=== PATIENT | female | born 1945 | race Caucasian/White ===

== ENCOUNTER 2019-12-30 20:24 | Emergency (ER) | payer MEDICARE, OTHER, SELFPAY ==
[2019-12-30 20:25] VITALS: BP 140/88; PULSE 74; RESP 15; TEMP 37.1; O2SAT 97; BMI 22.6
--- NOTE | 2019-12-30 21:45 | US_ITS ---
STUDY: VENOUS DOPPLER ULTRASOUND - RIGHT LOWER EXTREMITY REASON FOR EXAM: Female, 74 years old. RT POSTERIOR CALF PAIN THAT RADIATES UP TO LATERAL THIGH TECHNIQUE: Ultrasound evaluation of the deep vein system to include mejia-scale imaging and compression was performed. Mejia-scale imaging and Doppler sonographic evaluation, including duplex spectral analysis and qualitative color flow sonography, was performed. COMPARISON: None. FINDINGS: Common Femoral Vein: Normal compression, spontaneity and augmentation. Normal color Doppler. Common Femoral Vein/Greater Saphenous Junction: Normal compression. No internal echoes. Deep Femoral Vein: Not imaged Femoral Proximal: Normal compression. No internal echoes. Femoral Middle: Normal compression, spontaneity and augmentation. Normal color Doppler. Femoral Distal: Normal compression. No internal echoes. Popliteal Vein: Normal compression, spontaneity and augmentation. Normal color Doppler. Posterior Tibial Vein: Normal compression. No internal echoes. Peroneal Vein: Normal compression. No internal echoes. US/Venous Duplex Imag/Limited/Uni IMPRESSION: Normal venous Doppler ultrasound of the lower extremity. There is no evidence of deep venous stenosis. Electronically Signed: Carlos Villarreal MD at 22:58 EDT , Service support ,
--- NOTE | 2019-12-30 21:50 | ED.DCSUM_ITS ---
History of Present Illness Chief Complaint: Lower Extremity Injury Informant: Patient Onset: Days Context: Gradual Onset Timing: Continuous Narrative: Is a 74-year-old female with no past medical history presenting with worsening right calf pain. She states it started as a small area on her right mid calf but is now radiating up to her knee and now up to her thigh. She was seen at [facility] a week ago and had an ultrasound performed to rule out DVT. She states she is very concerned because the pain is spread. She is had recent travel to [place] as well as [place] a couple months ago. She denies any injury or new activities. She denies any chest pain, shortness of breath or difficulty breathing. She is not taking anything for pain. She denies any other complaints at this time. Past Medical History - Allergies and Home Meds Allergies/Adverse Reactions: Allergies No Known Allergies Allergy (Verified 12/30/19 20:25) Primary Care Physician: Galina Benitez MD [Primary Care Provider] - Past Medical History: None Surgical History: noncontributory Smoking Status: Never smoker Review of Systems General: Denies: Chills, Fever, Sweats Eyes: Denies: Visual changes - bilaterally, Diplopia ENT: Denies: Rhinorrhea, Sore throat Cardiovascular: Denies: Chest pain, Palpitations Respiratory: Denies: Dyspnea, Cough, Dyspnea on exertion Gastrointestinal: Denies: Abdominal pain, Nausea, Vomiting, Diarrhea, Melena, Hematochezia Genitourinary: Denies: Dysuria, Hematuria, Frequency Musculoskeletal: Reports: Myalgias - Right lower leg, Extremity Pain - Right lower leg. Denies: Back pain, Swelling Skin: Denies: Rash, Wounds Neurological: Denies: Headache, Weakness, Numbness Physical Exam Vital Signs/Narrative: Vital Signs Temp Pulse Resp BP Pulse Ox 12/30/19 20:25 98.8 F 74 15 140/88 H 97 Inital Vital Signs reviewed: Yes General: Well nourished, Well developed, No Acute Distress Head: Normocephalic, Atraumatic Eyes: Perrl, EOMI ENT: Moist mucous membranes, No rhinorrhea Neck: Supple, Nontender Cardiovascular: Regular rate, Regular rhythm, No murmurs, - - 2 Plus bilateral DP pulses Respiratory: No distress, CTA bilaterally, Chest nontender Abdomen: Soft, Nontender, Nondistended, Normal bowel sounds Back: Nontender, Normal Inspection Extremities: No edema, Tenderness - Mild diffuse tenderness palpation of the right calf, knee and proximal leg, - - No associated deformity, joint effusion, erythema or warmth. Normal range of motion. Normal straight leg test, normal Sifuentes test, no palpable cords Skin: Normal color, No rash Neurological: Alert, Oriented x3, Cranial nerves II-XII grossly intact, Normal Strength, Normal Sensation Psychological: Normal affect, Normal Mood Diagnostic/Tx/Re-eval Clinical Impression(s) from Imaging Studies Venous Duplex 12/30/19 21:45 IMPRESSION: Normal venous Doppler ultrasound of the lower extremity. There is no evidence of deep venous stenosis. Electronically Signed: Carlos Villarreal MD at 22:58 EDT , Service support , Laboratory Data 12/30/19 12/30/19 12/30/19 22:05 22:05 22:05 WBC 6.0 RBC 5.04 Hgb 14.1 Hct 43.8 MCV 86.9 MCH 28.0 MCHC 32.2 RDW Std Deviation 42.1 RDW Coeff of Zach 13.3 Plt Count 270 MPV 10.6 Immature Gran % (Auto) 0.300 Neut % (Auto) 47.1 Lymph % (Auto) 38.4 Becker % (Auto) 11.9 H Eos % (Auto) 1.8 Baso % (Auto) 0.5 Absolute Neuts (auto) 2.8 Absolute Lymphs (auto) 2.29 Nucleated RBC % 0 Sodium 143 Potassium 4.0 Chloride 112 H Carbon Dioxide 29.0 Anion Gap 2 L BUN 23 H Creatinine 0.99 Estim Creat Clear Calc 47.38 Est GFR (MDRD) Af Amer 70 Est GFR (MDRD) Non-Af 58 L BUN/Creatinine Ratio 23.2 H Glucose 96 Calcium 8.8 Total Creatine Kinase 83 - Medical Decision Making Patient is evaluated for 1 week of worsening pain in her right lower leg. It started in her calf and is now moved up her leg. She is not having appreciable swelling. Patient had a negative DVT scan 1 week ago however her symptoms have increased significantly since that scan. I did repeat the scan which was again negative. I did check electrolytes, CBC and a CPK. These were all normal. No signs of DVT, electrolyte abnormality or rhabdomyolysis to explain her symptoms. She is neurovascular intact. She does not have any obvious deformity I do not think x-ray imaging is indicated at this time. She does not have any associated back pain and she did not have associated rash. This presentation is atypical for shingles and I would expect her to have a rash after 1 week of symptoms. Patient is counseled that the exact cause of her pain is not clear but she will be started on NSAID therapy empirically. She is instructed to follow-up with her primary care doctor for further evaluation and treatment. Patient is counseled on signs and symptoms requiring return to the emergency room. Patient verbalizes agreement and understand this plan. Patient discharged home in stable and improved condition. ED Disposition - Plan for ED Patient: Disposition: Home or Assisted Living Diagnosis: Right leg pain Instructions: ED Muscle Pain Leg Cramps, ED ACHING MUSCLES Prescriptions: Ibuprofen [Motrin] 600 mg PO Q6H PRN PRN #20 tab PRN Reason: Pain/Inflammation Transmission Status: Received by [id number] Referrals: Galina Benitez MD [Primary Care Provider] - Additional Instructions: You do not have a blood clot in your leg. You do not have signs of electrolyte abnormality or muscle breakdown. I do not know why you are having pain in your leg. Please follow-up with your primary care doctor for further evaluation.
[2019-12-30] MEDS: Ketorolac 15 MG/ML Vial IV (22:06)
[2019-12-30 22:15] LABS: Absolute Lymphocyte Count 2.29 X10^3/uL (0.83-4.51); Absolute Neutrophil Count 2.8 X10^3/uL (2.0-7.7); Basophil# 0.03 X10^3/uL; Basophil% 0.5 % (0-1); Eosinophil# 0.11 X10^3/uL; Eosinophils% 1.8 % (0-5); Hematocrit 43.8 % (37-47); Hemoglobin 14.1 g/dL (12.0-15.0); Lymphocyte # 2.29 X10^3/ul (4.0); Lymphocyte % 38.4 % (19-41); Mean Corp Hgb Conc 32.2 g/dL (32-36); Mean Corpuscular Volume 86.9 fL (81-99); Mean Platelet Vol. 10.6 fl (6.2-12.0); Monocyte# 0.71 X10^3/uL; Monocyte% 11.9 % (0-10); NRBC Flagged by Analyzer 0 % (0-5); Neutrophil % 47.1 % (47-70); Platelet Count 270 K/mm3 (150-450); RBC Distribution Width CV 13.3 % (11.6-14.6); RBC Distribution Width SD 42.1 fl (35.1-43.9); Red Blood Count 5.04 M/mm3 (4.2-5.4)
[2019-12-30 22:29] LABS: Anion Gap 2 (5-15); BUN 23 mg/dL (7-18); BUN/Creat Ratio 23.2 RATIO (10-20); Calcium,Total 8.8 mg/dL (8.5-10.1); Chloride 112 mmol/L (98-107); Creatinine, Serum 0.99 mg/dL (0.55-1.02); EST Glomerular Filtration Rate 58 mL/min (>60); Est Glom Filt Rate - Afr Amer 70 mL/min (>60); Estimated Creatinine Clearance 47.38 ml/min; Glucose 96 mg/dL (74-106); Sodium Level 143 mmol/L (136-145)
[2019-12-30 22:30] LABS: CPK Total, Creatine Kinase 83 U/L (26-192)
== END 2019-12-30 23:31 | disposition home or self-care (01) ==
PROVIDERS: Emergency Provider Emergency Medicine; PCP Internal Medicine
DX: M79.604 Pain in right leg (principal)
CPT/HCPCS: 80048; 82550; 85025; 93971; 96374; 99283; A4216